=== PATIENT | female | born 1945 | race Asian ===

== ENCOUNTER 2016-11-21 08:28 | Emergency (ER) | payer OTHER ==
[~2016-11-21] VITALS: Ht 157.5 cm; Wt 65.8 kg
--- NOTE | 2016-11-21 08:33 | NUR ---
Patient to ER bed 3 to gown for evaluation. Side rails up. Traiged at bedside. Report given to Justa ALAMO.
[2016-11-21 08:35] VITALS: BP_SYST 186
--- NOTE | 2016-11-21 08:40 | NUR ---
ER at bedside examining patient.
[2016-11-21] MEDS ORDERED: cloNIDine HCL 0.1 MG TABLET PO ONE (08:45)
[2016-11-21] MEDS ORDERED: methylPREDNISolone SOD SUCC/PF 62.5 MG/ML VIAL IM ONE (08:45)
--- NOTE | 2016-11-21 08:46 | NUR ---
MEDICATED PT WITH SOLUMEDROL 125 MG IM AND CLONIDINE 0.1 MG TABLET.
[2016-11-21 09:02] VITALS: BP_SYST 155
--- NOTE | 2016-11-21 09:40 | NUR ---
Patient given written and verbal discharge instructions and verbalizes understanding. ER MD DR LARA discussed with patient the results and treatment provided. Patient in stable condition. Rx of PREDNISONE AND BENADRYL given. Patient educated on pain management and to follow up with PMD. Pain Scale 0. Opportunity for questions provided and answered.
== END 2016-11-21 09:42 | disposition home or self-care (01) ==
LOC: SED 08:28
DX: T78.49XA Other allergy, initial encounter (principal); J45.909 Unspecified asthma, uncomplicated; I10 Essential (primary) hypertension; X58.XXXA Exposure to other specified factors, initial encounter
CPT/HCPCS: 96372; 99283; J2930